=== PATIENT | male | born 1980 | race Two or more races ===

== ENCOUNTER 2021-01-07 10:46 | Emergency (ER) | payer SELFPAY ==
[~2021-01-07] VITALS: Ht 167.6 cm; Wt 104.2 kg
[2021-01-07] MEDS ORDERED: LIDOCAINE-MPF 1%, 5ML INFIL ONE (11:00)
[2021-01-07] MEDS ORDERED: LIDOCAINE-MPF 1%, 5ML ONE (13:23)
[2021-01-07] MEDS ORDERED: NEOSPORIN OINT. PKT 1 PACKET ONE (13:58)
[2021-01-07 14:08] VITALS: BP 134/85
== END 2021-01-07 14:12 | disposition home or self-care (01) ==
LOC: ED 12:00
DX: S06.0X1A Concussion with loss of consciousness of 30 minutes or less, initial encounter (principal); S01.511A Laceration without foreign body of lip, initial encounter; Y04.8XXA Assault by other bodily force, initial encounter; Y93.89 Activity, other specified; Y92.410 Unspecified street and highway as the place of occurrence of the external cause; Y99.8 Other external cause status
CPT/HCPCS: 12051; 70450; 99284